=== PATIENT | female | born 1965 | race Caucasian/White ===

== ENCOUNTER 2025-06-30 13:10 | Emergency (ER) | payer OTHER ==
[~2025-06-30] VITALS: Ht 165.1 cm; Wt 61.7 kg
[2025-06-30] MEDS ORDERED: ONDANSETRON HCL/PF 4 MG/2 ML VIAL ONE (13:37)
[2025-06-30] MEDS ORDERED: MORPHINE SULFATE INJ 4 MG/ML DISP.SYRIN ONE ×2 (13:38→15:21)
[2025-06-30] MEDS: MORPHINE SULFATE INJ 2 MG/ML DISP.SYRIN IV ONE (13:53)
[2025-06-30] MEDS: ONDANSETRON HCL/PF 4 MG/2 ML VIAL IVP ONE (13:54)
[2025-06-30 13:55] LABS: PLATELET COUNT (AUTO) 231 K/uL (150-450); RED BLOOD CELL COUNT(AUTO) 4.88 MIL/uL (4.0-5.2); RED CELL DISTRIBUTION WIDTH 12.9 % (11.5-15.0); WHITE BLOOD COUNT (AUTO) 5.5 K/uL (4.3-11.0)
[2025-06-30] MEDS ORDERED: KETOROLAC TROMETHAMINE 15 MG/ML VIAL ONE (14:01)
[2025-06-30 14:02] LABS: CALCIUM, SERUM 9.0 mg/dL (8.5-10.1); CREATININE 0.7 mg/dL (0.6-1.3); SODIUM SERUM 141.0 mmol/L (136-145); UREA NITROGEN, BLOOD 12.0 mg/dL (7-18)
[2025-06-30] MEDS: IV NS 0.9% 500 ML BAG IV ONE (14:12)
[2025-06-30] MEDS: KETOROLAC TROMETHAMINE 15 MG/ML VIAL IV ONE (14:12)
[2025-06-30] MEDS ORDERED: CYCL5TAB PO (14:51)
[2025-06-30 15:36] VITALS: BP 126/80; TEMP 98; O2SAT 99
== END 2025-06-30 15:37 | disposition home or self-care (01) ==
LOC: ER 13:17
DX: M54.50 Low back pain, unspecified (principal); Z60.2 Problems related to living alone
CPT/HCPCS: 99285; 96374; 72131; 96375; 85025; 80048; 84703; 36415; J1885; J2270; J7040; J2405